=== PATIENT | female | born 1945 | race Caucasian/White ===

== ENCOUNTER → 2017-04-21 | Outpatient (CLI) | payer OTHER ==
[~2017-04-21] MED LIST: AMBIEN PO; AMLODIPINE BESYL5 MG PO; ASPERDRINK81 MG PO; CALTRATE PLUS T1 TAB PO; CARBATROL300 MG PO; CENTRUM SILVER PO; CENTRUM240 ML; CIPRO250 MG PO; CITRACAL200 MG; CVS GLUCOSAMIN1 EACH PO; DITROPAN PO; HYDROCODON-ACE1 EAC1 PO; HYDROCODON-ACE1 EAC5 PO; LIPITOR40 MG PO; LOPRESSOR PO; LYRICA; MACROBID 100 M100 MG; MACROBID 100 M100 MG PO; METOPROLOL-HCTZ1 TA3; MUCINEX DM1 TAB.SR . PO; NEURONTIN100 MG PO; NORVASC; NORVASC PO; OMEPRAZOLE40 M1 PO; PLAVIX; PLAVIX PO; PREMARIN; PREMARIN PO; PREMARIN0.9 MG PO; VIMPAT; ZETIA PO; ZOCOR PO; ZOCOR80 MG PO; ZOLPIDEM TARTRAT5 MG PO; [UNRECOGNIZED DRUG - OTHER]
--- NOTE | ~2017-04-21 | MY11 ---
[facility] A Service [facility] RADIOLOGY TEXT RESULTS PATIENT: MARY GRACE PIZARRO LOCATION: [facility] : 49 UNIT #: [id number] AGE: [address]: Stanislaw Echevarria MD SEX: F ORDER DR: [id number] [facility]. [place], [place] [address] [id number] O MR#: [id number] Acc #: [id number] NAME: MARY GRACE PIZARRO : 1945 SEX: F STUDY DATE/TIME: 04/21/2017 9:19 UNIT: [facility] ROOM: STUDY DESCRIPTION: MY Mammogram Screening Dig [place] Attending Physician: Stanislaw Echevarria M.D. Referring Physician: Stanislaw Echevarria M.D. Ordering Physician: Stanislaw Echevarria M.D. Primary Care Physician: Stanislaw Echevarria M.D. MEDICAL IMAGING REPORT This report is preliminary unless electronic signature is present EXAM Bilateral breast screening mammogram HISTORY Routine screening. No current complaints. No family history of breast cancer. COMPARISON: 04/16/2016, 04/04/15, 03/27/2014. FINDINGS MLO and CC digital views of each breast were obtained. The exam was reviewed with an FDA-approved CAD device. The breasts are heterogenously dense. There are no masses or abnormal calcifications. There has been no change. Today's CC view includes more deep tissue than previous exams but there is an exaggerated ML view from 2013 which shows the same tissue. IMPRESSION No change and no evidence of malignancy. Patients over the age of 40 are entered into a reminder system with target due date for the next mammogram. A result letter will also be sent to the patient. BIRADS: 2 - benign findings Dictated by... Husam Sanderson M.D. THIS IS AN ELECTRONICALLY VERIFIED REPORT Husam Sanderson M.D. at 04/21/2017 1:22 PM FEL/cmm [facility] A Service [facility] RADIOLOGY TEXT RESULTS PATIENT: MARY GRACE PIZARRO LOCATION: [facility] : 49 UNIT #: [id number] AGE: [address]: Stanislaw Echevarria MD SEX: F ORDER DR: TD: 04/21/2017 11:34 JOB #: [id number] MEDICAL IMAGING REPORT Page 1 of 1 COPY
== END | disposition home or self-care (01) ==
LOC: CWCC 02-20 10:00
DX: Z12.31 Encounter for screening mammogram for malignant neoplasm of breast (principal); Z78.0 Asymptomatic menopausal state
CPT/HCPCS: G0202